=== PATIENT | female | born 1930 | race Caucasian/White ===

== ENCOUNTER 2017-09-23 12:12 | Emergency (ER) | payer OTHER, MEDICARE ==
[2017-09-23 12:33] LABS: Absolute Lymphocytes (CBC) 3.9 K/uL (0.7-4.9); Absolute Monocytes 0.4 K/uL (0.1-1.3); Absolute Neutrophil 5.6 K/uL (1.8-8.0); Basophils % 0.5 % (0-1.3); Eosinophils % 0.4 % (0-4.4); Hematocrit 40.6 % (36.0-45.0); Lymphocytes % 38.8 % (15.3-44.8); MPV 8.2 fL (7.6-11.3); Monocytes % 4.1 % (3.3-12.3); RBC Red Blood Cell Count 4.36 M/uL (3.86-4.86)
[2017-09-23 12:43] LABS: Potassium 3.6 mEq/L (3.6-5.0)
[2017-09-23] MEDS ORDERED: NA CHLORIDE 0.9% 2,000 ML ONE (12:47)
[2017-09-23 12:48] LABS: Albumin 3.7 g/dL (3.2-5.5); Bilirubin Direct 0.1 mg/dL (0-0.2); Bilirubin Total 0.5 mg/dL (0.3-1.2); Protein, Total 6.5 g/dL (6.0-8.3)
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
[2017-09-23 13:13] LABS: Blood Morphology Comment NOT SEEN (NOT SEEN); Platelet Estimate ADEQ; Urine White Blood Cell Casts OK
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
--- NOTE | 2017-09-23 14:52 | EKG ---
Test Date: 2017-09-23 Test Time: 12:24:36 Double Surface Operator: JAZMIN MEASUREMENT RESULTS: Intervals: Rate: 85 ME: 170 QRSD: 142 QT: 428 QTc: 509 [place]: P: 52 ME: 170 QRS: -81 T: 76 INTERPRETIVE STATEMENTS: Normal sinus rhythm Left axis deviation Left bundle branch block Abnormal ECG Compared to ECG 01/12/2008 10:34:24 No significant changes Electronically Signed On 09-23-17 14:52:16 CDT by Pelon Small
[2017-09-23 14:55] LABS: Hematocrit 33.2 % (36.0-45.0)
[2017-09-23 15:00] LABS: Protime INR 0.97
[2017-09-23 16:14] LABS: Urine Blood 3+ (NEG); Urine Glucose NEGATIVE (NEG); Urine Protein 2+ (NEG); Urine Specific Gravity 1.015 (1.005-1.030); Urine pH 5.5 (5.0-7.0)
== END 2017-09-23 14:47 | disposition short-term general hospital (02) ==
LOC: ER 12:12
PROC: 2W39X1Z Immobilization of Left Upper Extremity using Splint (ICD-10-PCS; principal; 2017-09-23)
PROC: 05HP33Z Insertion of Infusion Device into Right External Jugular Vein, Percutaneous Approach (ICD-10-PCS; 2017-09-23)
DX: S22.49XA Multiple fractures of ribs, unspecified side, initial encounter for closed fracture (principal); S22.20XA Unspecified fracture of sternum, initial encounter for closed fracture; S42.302A Unspecified fracture of shaft of humerus, left arm, initial encounter for closed fracture; S32.82XA Multiple fractures of pelvis without disruption of pelvic ring, initial encounter for closed fracture; S22.078A Other fracture of T9-T10 vertebra, initial encounter for closed fracture; S32.008A Other fracture of unspecified lumbar vertebra, initial encounter for closed fracture; V49.49XA Driver injured in collision with other motor vehicles in traffic accident, initial encounter; Z88.0 Allergy status to penicillin; Z85.3 Personal history of malignant neoplasm of breast; Z88.5 Allergy status to narcotic agent; I10 Essential (primary) hypertension
CPT/HCPCS: 29105; 36415; 36569; 70450; 71045; 71260; 72125; 72170; 73060; 73090; 74177; 80048; 80076; 81003; 83690; 84484; 85014; 85018; 85025; 85610; 86850; 86900; 86901; 93005; J7030; Q9967; 51702; 96360; 99285